=== PATIENT | female | born 1945 ===

== ENCOUNTER → 2021-06-23 09:37 | Outpatient (CLI) | payer OTHER ==
[~2021-06-23 09:37] MED LIST: ARICEPT5 MG PO; FORTAMET500 MG PO; GLIMEPIRIDE1 MG PO; LIPITOR40 M1 PO; MACROBID 100 M100 MG PO; ULTRACET PO
== END | disposition home or self-care (01) ==
LOC: LAB 09:37 → RAD 09:37
PROVIDERS: ATTEND Obstetrics & Gynecology Gynecology
DX: D64.89 Other specified anemias (principal); D68.8 Other specified coagulation defects; N39.0 Urinary tract infection, site not specified; D78.89 Other postprocedural complications of the spleen; R07.89 Other chest pain

== ENCOUNTER 2021-07-15 05:17 | Day surgery (SDC) | payer OTHER ==
[~2021-07-15 05:17] MED LIST changes: -MACROBID 100 M100 MG PO; -ULTRACET PO
[2021-07-15] MEDS ORDERED: ULTRACET PO (11:08)
[2021-07-15] MEDS ORDERED: MACROBID 100 M100 MG PO (11:08)
== END 2021-07-15 15:35 | disposition home or self-care (01) ==
LOC: CIR.AMB 05:17
PROVIDERS: ATTEND Obstetrics & Gynecology Gynecology
DX: N81.11 Cystocele, midline (principal); Z20.822 Contact with and (suspected) exposure to COVID-19